=== PATIENT | female | born 1965 | race Caucasian/White ===

== ENCOUNTER → 2016-04-10 | Outpatient (CLI) | payer OTHER ==
[~2016-04-10] MED LIST: ADVIN50050 INH; ALBU1AER9 INH; AMB10 PO; CALC-343; CALC0.5C2 PO; DIAZ10TA PO; ERGO1CAP35 PO; FENO48TA9 PO; KRIL1CAP7 PO; LAMO100T16 PO; LEVO125T4 PO; MORP30TA PO; NATA1INJ IV; ONDA4TAB65 PO; OXYC-787 PO; OXYC1TAB PO; RANI1TAB77 PO; RIZA10TA18 PO; SNG10 PO; TIZA1CAP PO; ZOLP12.5 PO; [UNRECOGNIZED DRUG - CODE] TOP; [UNRECOGNIZED DRUG - OTHER] IV
== END | disposition home or self-care (01) ==
LOC: C.LAB 12:38
PROVIDERS: ATTEND Internal Medicine Endocrinology, Diabetes & Metabolism
DX: E55.9 Vitamin D deficiency, unspecified (principal); M85.80 Other specified disorders of bone density and structure, unspecified site

== ENCOUNTER → 2016-07-07 | Outpatient (CLI) | payer OTHER ==
[~2016-07-07] MED LIST changes: -LEVO125T4 PO; +LEVO125T5 PO
[2016-07-07 13:35] LABS: HEMATOCRIT 39.1 % (37-47); MEAN CELL VOLUME 89.3 fL (80-100); MEAN CORPUSCULAR HEMOGLOBIN 31.1 pg (25-34); MEAN CORPUSCULAR HGB CONC 34.8 g/dl (32-36); MEAN PLATELET VOLUME 9.9 fL (7.4-10.4); PLATELET COUNT 210 K/uL (130-400); RED BLOOD COUNT 4.38 M/uL (4.2-5.4); WHITE BLOOD COUNT 11.64 K/uL (4.8-10.8)
[2016-07-07 13:56] LABS: ALT/SGPT 19 U/L (12-78); BASO % 0.3 %; BASO ABS # 0.04 K/uL (0-0.2); BLOOD UREA NITROGEN 12 mg/dl (7-18); CALCIUM 9.1 mg/dl (8.5-10.1); CARBON DIOXIDE 25 mmol/L (21-32); CHLORIDE 108 mmol/L (98-107); COMPLETE YES; CREATININE 0.73 mg/dl (0.60-1.20); EOS % 2.1 %; GLUCOSE 94 mg/dl (70-99); IG% 0.4 %; LYMPH % 35.7 %; LYMPH ABS # 4.15 K/uL (1.2-3.4); MONO % 5.8 %; NEUT % 55.7 %; POTASSIUM 3.8 mmol/L (3.5-5.1); SODIUM 140 mmol/L (136-145)
[2016-07-07 14:08] LABS: ALB/GLOB RATIO 1.2 (0.9-2); ALKALINE PHOSPHATASE 53 U/L (45-117); AST/SGOT 17 U/L (15-37)
[2016-07-12 01:45] LABS: JCV ANTIBODY NEGATIVE; JCV INDEX 0.12
== END | disposition home or self-care (01) ==
LOC: C.LAB 10:34
PROVIDERS: ATTEND Psychiatry & Neurology Neurology
DX: G35 Multiple sclerosis (principal); E55.9 Vitamin D deficiency, unspecified; T14.8 Other injury of unspecified body region; X58.XXXA Exposure to other specified factors, initial encounter

== ENCOUNTER → 2016-08-04 | Outpatient (CLI) | payer OTHER | END | disposition home or self-care (01) | LOC: C.LABSPEC 11:11 | PROVIDERS: ATTEND Internal Medicine Endocrinology, Diabetes & Metabolism | DX: E55.9 Vitamin D deficiency, unspecified (principal); M85.80 Other specified disorders of bone density and structure, unspecified site; E03.8 Other specified hypothyroidism ==

== ENCOUNTER → 2017-01-05 | Outpatient (CLI) | payer OTHER ==
[~2017-01-05] MED LIST changes: -ADVIN50050 INH; -AMB10 PO; -ERGO1CAP35 PO; +GADAVIST IV PRN; +LEVO125T4 PO; -LEVO125T5 PO; -OXYC1TAB PO; -[UNRECOGNIZED DRUG - OTHER] IV
--- NOTE | 2017-01-05 13:14 | DIAGNOSTIC IMAGING REPORT ---
MRI THE THORACIC SPINE WITHOUT A WITH GADOLINIUM CLINICAL HISTORY: G35 Multiple [id number] [id number] Incomplete emptying of the bladder COMPARISON STUDY: No previous studies for comparison. FINDINGS: Imaging was performed in the sagittal and axial planes, before and after the administration of 7.7 cc of intravenous Gadavist. No cord lesions are visualized. There is no pathologic enhancement. There are no suspicious areas of marrow replacement. No disc herniations are visualized. IMPRESSION: Unremarkable MRI of the thoracic spine. Electronically signed by: Timmy Sanchez M.D. 01/05/2017 1:13 PM Dictated Date/Time: 01/05/2017 1:09 PM
--- NOTE | 2017-01-05 13:15 | DIAGNOSTIC IMAGING REPORT ---
BRAIN COMBO FOR MS CLINICAL HISTORY: Multiple sclerosis. Gait disturbance. Fatigue. COMPARISON STUDY: MRI of the brain March 04, 2016. TECHNIQUE: Utilizing 1.5 Claritza magnet and dedicated coil, multiplanar, multi echo imaging of the brain was performed pre and postcontrast administration according to multiple sclerosis protocol. Injection of 7. Cc of Gadavist IV was uneventful. FINDINGS: There are no areas of restricted diffusion. No acute intracranial hemorrhage, midline shift or mass effect is present. Ventricular system is normal. Basilar cisterns are patent. There are no extra-axial collections. Flow-voids for the major intracranial vessels are present. There is no intracranial mass or pathologic enhancement. Multiple white matter T2 hyperintense foci, predominantly within a periventricular distribution, are similar to exam of December 04, 2015. No new areas of signal abnormality are present. Calvarial signal is maintained. Orbits are unremarkable. IMPRESSION: 1. No acute intracranial findings. 2. No change in multiple white matter T2 hyperintense foci since exam of December 04, 2015 which suggest previous demyelination. No new areas of signal abnormality. No evidence for active demyelination. Electronically signed by: Campbell Butler M.D. 01/05/2017 1:14 PM Dictated Date/Time: 01/05/2017 1:08 PM
--- NOTE | 2017-01-05 13:21 | DIAGNOSTIC IMAGING REPORT ---
CERVICAL SPINE COMBO CLINICAL HISTORY: 51 years-old Female presenting with G35 Multiple [id number] OlqptazO94.9 Incomplete emptying of the bladder, pain down the exterior of the left leg. TECHNIQUE: Multisequence, multiplanar MR imaging of the cervical spine was performed before and after the administration of intravenous contrast. IV contrast: 7.7 mL of Gadavist. COMPARISON: 06/17/2012. FINDINGS: Localizer images: Unremarkable. Normal cervical lordosis. Vertebral bodies maintain normal height, alignment, bone marrow signal intensity. Intervertebral disc heights preserved, although suggestion of annular fissures at C3-4 and C5-6 ((series 14 image 8). Small disc osteophyte complexes noted at these levels with resultant minimal spinal canal narrowing. This does not significantly impact the spinal cord. No significant neural foraminal narrowing. Spinal cord maintains normal morphology and signal intensity. Craniocervical junction normal. No convincing evidence of a spinal cord lesion. Paraspinal soft tissues within normal limits. Postcontrast imaging demonstrates no abnormal enhancement within the spinal cord. IMPRESSION: 1. No evidence of spinal cord lesion or abnormal enhancement to suggest demyelinating disease in the cervical spine. 2. Mild degenerative changes with annular fissures and small disc osteophyte complexes at C3-4 and C5-6. No significant spinal canal or neural foraminal narrowing. Electronically signed by: Geoff Don M.D. 01/05/2017 1:19 PM Dictated Date/Time: 01/05/2017 1:12 PM
== END | disposition home or self-care (01) ==
LOC: C.MRI 10:25
PROVIDERS: ATTEND Psychiatry & Neurology Neurology
DX: G35 Multiple sclerosis (principal); F09 Unspecified mental disorder due to known physiological condition; R53.83 Other fatigue; R26.9 Unspecified abnormalities of gait and mobility; R33.9 Retention of urine, unspecified

== ENCOUNTER → 2017-01-05 | Outpatient (CLI) | payer OTHER ==
[~2017-01-05] MED LIST changes: -GADAVIST IV PRN
[2017-01-05 08:47] LABS: BASO % 0.5 %; BASO ABS # 0.05 K/uL (0-0.2); COMPLETE YES; EOS % 2.6 %; HEMATOCRIT 39.1 % (37-47); IG% 0.1 %; LYMPH % 36.4 %; LYMPH ABS # 3.69 K/uL (1.2-3.4); MEAN CELL VOLUME 89.7 fL (80-100); MEAN CORPUSCULAR HGB CONC 33.5 g/dl (32-36); MEAN PLATELET VOLUME 9.4 fL (7.4-10.4); MONO % 6.2 %; NEUT % 54.2 %; PLATELET COUNT 221 K/uL (130-400); RED BLOOD COUNT 4.36 M/uL (4.2-5.4); WHITE BLOOD COUNT 10.13 K/uL (4.8-10.8)
[2017-01-05 09:16] LABS: ALT/SGPT 12 U/L (12-78); BLOOD UREA NITROGEN 10 mg/dl (7-18); BUN/CREATININE RATIO 12.5 (10-20); CALCIUM 9.2 mg/dl (8.5-10.1); CARBON DIOXIDE 25 mmol/L (21-32); CHLORIDE 109 mmol/L (98-107); CREATININE 0.79 mg/dl (0.60-1.20); GLUCOSE 88 mg/dl (70-99); POTASSIUM 3.9 mmol/L (3.5-5.1); SODIUM 141 mmol/L (136-145)
[2017-01-05 09:27] LABS: ALB/GLOB RATIO 1.1 (0.9-2); ALKALINE PHOSPHATASE 42 U/L (45-117); AST/SGOT 14 U/L (15-37); THYROID STIMULATING HORMONE 0.023 uIu/ml (0.300-4.500)
[2017-01-05 09:47] LABS: LYME DISEASE AB IGG NEG (NEG); LYME DISEASE AB IGM NEG (NEG)
== END | disposition home or self-care (01) ==
LOC: C.LABSPEC 12:26
PROVIDERS: ATTEND Internal Medicine Endocrinology, Diabetes & Metabolism
DX: M85.80 Other specified disorders of bone density and structure, unspecified site (principal); G35 Multiple sclerosis; R53.83 Other fatigue; F09 Unspecified mental disorder due to known physiological condition; E88.81 Metabolic syndrome and other insulin resistance; E55.9 Vitamin D deficiency, unspecified

== ENCOUNTER → 2017-02-02 | Outpatient (CLI) | payer OTHER ==
[~2017-02-02] MED LIST changes: -LEVO125T4 PO; +LEVO125T5 PO
[2017-02-02 08:49] LABS: CALCIUM 9.2 mg/dl (8.5-10.1)
[2017-02-02 08:55] LABS: ESTIMATED AVERAGE GLUCOSE 108 mg/dl; HA1C FLAG Normal (Normal)
[2017-02-02 08:58] LABS: CHOLESTEROL/HDL RATIO 3.9
== END | disposition home or self-care (01) ==
LOC: C.LAB 16:47
PROVIDERS: ATTEND Internal Medicine Endocrinology, Diabetes & Metabolism
DX: M85.80 Other specified disorders of bone density and structure, unspecified site (principal); E78.5 Hyperlipidemia, unspecified; E88.81 Metabolic syndrome and other insulin resistance; E66.9 Obesity, unspecified; E55.9 Vitamin D deficiency, unspecified

== ENCOUNTER → 2017-06-10 | Outpatient (CLI) | payer OTHER ==
[2017-06-10 11:17] LABS: HEMATOCRIT 38.2 % (37-47); HEMOGLOBIN 13.2 g/dL (12.0-16.0); MEAN CELL VOLUME 88.6 fL (80-100); MEAN CORPUSCULAR HEMOGLOBIN 30.6 pg (25-34); MEAN CORPUSCULAR HGB CONC 34.6 g/dl (32-36); MEAN PLATELET VOLUME 9.5 fL (7.4-10.4); NUCLEATED RED BLOOD CELL ABS 0.02 K/uL (0-0); PLATELET COUNT 196 K/uL (130-400); RED CELL DISTRIBUTION WIDTH CV 13.9 % (11.5-14.5); RED CELL DISTRIBUTION WIDTH SD 45.8 fL (36.4-46.3); WHITE BLOOD COUNT 7.56 K/uL (4.8-10.8)
[2017-06-10 11:42] LABS: ALBUMIN 3.7 gm/dl (3.4-5.0); ALT/SGPT 19 U/L (12-78); AST/SGOT 12 U/L (15-37); BLOOD UREA NITROGEN 11 mg/dl (7-18); CALCIUM 9.6 mg/dl (8.5-10.1); CARBON DIOXIDE 27 mmol/L (21-32); CREATININE 0.69 mg/dl (0.60-1.20); GLUCOSE 88 mg/dl (70-99); POTASSIUM 3.7 mmol/L (3.5-5.1); SODIUM 137 mmol/L (136-145)
[2017-06-10 11:52] LABS: ALKALINE PHOSPHATASE 41 U/L (45-117); TOTAL PROTEIN 6.8 gm/dl (6.4-8.2)
== END | disposition home or self-care (01) ==
LOC: C.LAB 16:51
PROVIDERS: ATTEND Internal Medicine Endocrinology, Diabetes & Metabolism
DX: G35 Multiple sclerosis (principal); E55.9 Vitamin D deficiency, unspecified

== ENCOUNTER → 2017-07-08 | Outpatient (CLI) | payer OTHER ==
[~2017-07-08] MED LIST changes: -ALBU1AER9 INH; -CALC-343; -KRIL1CAP7 PO; -LAMO100T16 PO; -LEVO125T5 PO; +LEVO150T9 PO; +MONT1TAB3 PO; -MORP30TA PO; -OXYC-787 PO; -SNG10 PO; +VNTHFA/IN INH; -ZOLP12.5 PO
== END | disposition home or self-care (01) ==
LOC: C.LAB 16:20
PROVIDERS: ATTEND Psychiatry & Neurology Neurology
DX: G35 Multiple sclerosis (principal)

== ENCOUNTER → 2017-07-10 | Day surgery (SDC) | payer OTHER ==
[2016-10-09 09:24] VITALS: BMI 31.0
[2017-07-01 11:00] VITALS: Ht 162.6 cm; Wt 74.5 kg
[~2017-07-10] VITALS: Ht 162.6 cm; Wt 74.5 kg
[~2017-07-10] MED LIST changes: +LIDOCAINE HCL 2% 2 ML VIAL (20MG/ML) ONE; +MIDAZOLAM HCL 1 MG/ML 2ML VIAL ONE; +ONDANSETRON INJ 2 MG/ML 2 ML VIAL ONE; +PROPOFOL IV EMULSION 10 MG/ML 20 ML VIAL IV ONE
--- NOTE | 2017-07-10 09:19 | Endo History and Physical ---
History & Physical Date of Service: Jul 10, 2017. Chief Complaint: Screening, Hx polyps Referring Physician: Dr Cevallos History of Present Illness 51 yo CF who presents for colonoscopy secondary to history of polyps. Past Medical History Asthma, Cancer, COPD, Thyroid Disease Past Surgical History Hx Cardiac Surgery: Yes (CARDIAC ABLATION-2006) Hx Internal Defibrillator: No Hx Pacemaker: No Hx Abdominal Surgery: Yes (, TUBAL LIGATION) Hx of Implantable Prosthesis: No Hx Post-Op Nausea and Vomiting: Yes Hx Cancer Surgery: Yes (TAHBSO) Hx Thoracic Surgery: No Hx Orthopedic: No Hx Urinary Tract Surgery: No Family History Polyp Social History Smoking Status: Current Every Day Smoker Hx Substance Use: Yes (SEE MED REC) Hx Alcohol Use: No Allergies Coded Allergies: Aspirin (Unverified Allergy, Severe, ANAPHYLAXIS, 07/01/17) Glatiramer (Unverified Allergy, Severe, ANAPHYLAXIS,IRREGULAR HEART RATE, 07/01/17) Heparin (Unverified Allergy, Severe, ANAPHYLAXIS, 07/01/17) Ibuprofen (Unverified Allergy, Severe, ANAPHYLAXIS, 07/01/17) Mannitol (Unverified Allergy, Severe, ANAPHYLAXIS,IRREGULAR HEART RATE, 07/01/17) NSAIDs (Unverified Allergy, Severe, ANAPHYLAXIS, 07/01/17) [place] (Unverified Allergy, Severe, ANAPHYLAXIS, 07/01/17) Topiramate (Unverified Allergy, Severe, DIFFICULTY BREATHING,ASTHMATIC SYMPTOMS, 07/01/17) Penicillin V (Unverified Allergy, Intermediate, HIVES,IRREGULAR HEART BEAT , 07/01/17) Sulfa Antibiotics (Unverified Allergy, Intermediate, HIVES, 07/01/17) Azithromycin (Unverified Allergy, Unknown, HIVES, 07/01/17) Bupropion (Unverified Allergy, Unknown, UNKNOWN, 07/01/17) CI Pigment Blue 63 (Unverified Allergy, Unknown, SUICIDAL THOUGHTS, DIFFICULTY BREATHING, 07/01/17) Duloxetine (Unverified Allergy, Unknown, SUICIDAL THOUGHTS,DIFFICULTY BREATHING, 07/01/17) Erythromycin (Unverified Allergy, Unknown, HIVES, 07/01/17) Paroxetine (Unverified Allergy, Unknown, UNKNOWN, 07/01/17) Sertraline (Unverified Allergy, Unknown, UNKNOWN, 07/01/17) Tamsulosin (Unverified Allergy, Unknown, UNKNOWN, 07/01/17) Azathioprine (Unverified Adverse Reaction, Unknown, CARDIAC ISSUES, IRREGULAR HEART RATE, 07/01/17) Cyclobenzaprine (Unverified Adverse Reaction, Unknown, unknown, 07/01/17) Cyclophosphamide (Unverified Adverse Reaction, Unknown, Cyxtoxan - CARDIAC ISSUES-IRREGULAR HEART RATE, 07/01/17) Pregabalin (Unverified Adverse Reaction, Unknown, HIVES CARDIAC ISSUES, IRREGULAR HEART RATE, 07/01/17) Current Medications Reported Home Medications Medications Dose Route/Sig Max Daily Dose Days Date Category Dose Instructions Ventolin Hfa (Albuterol) 200 Puffs/19077 Mcg Aers 2-4 Puffs INH Q6H PRN 07/01/17 Reported Singulair (Montelukast Sodium) 10 Mg Tab 10 Mg PO HS 07/01/17 Reported Levothyroxine Sodium 150 Mcg Tab 150 Mcg PO QAM 07/01/17 Reported Tysabri (Natalizumab) 300 Mg/15 Ml Inj 1 Dose IV MONTHLY 10/09/16 Reported Rocaltrol (Calcitriol) 0.5 Mcg Cap 3 Cap PO TID 10/09/16 Reported Zofran (Ondansetron Hcl) 4 Mg Tab 1 Tab PO Q6H PRN 02/08/15 Reported Tizanidine Hcl 2 Mg Cap 2 Mg PO BID PRN 02/02/15 Reported Lidocaine HCl (Lidocaine/Epineph/Tetracaine) 1 Ea Gel 1 Dose TOP UD PRN 02/02/15 Reported LIDOCAINE 2.5 %/PRILOCAINE CREAM-USES TOPICALLY PRIOR TO IV STICKS Ranitidine [address] (Ranitidine HCl) 150 Mg Tab 150 Mg PO BID 02/02/15 Reported INSTRUCTED TO TAKE AM SURG SIP WATER Tricor (Fenofibrate) 48 Mg Tab 48 Mg PO QAM 02/02/15 Reported Maxalt (Rizatriptan Benzoate) 10 Mg Tab 10 Mg PO UD PRN 02/02/15 Reported Valium (Diazepam) 10 Mg Tab 10 Mg PO TID 03/16/11 Reported Vital Signs Weight (Kilograms): 74.55 Height (Feet): 5 Height (Inches): 4 Date Time Temp Pulse Resp B/P (MAP) Pulse Ox O2 Delivery O2 Flow Rate FiO2 07/10/17 09:12 36.6 80 18 96/60 (72) 18 Room Air Physical Exam General Appearance: WD/WN, no apparent distress Respiratory/Chest: Auscultation: breath sounds normal Cardiovascular: Heart Auscultation: RRR Abdomen: Bowel Sounds: normal Inspection & Palpation: soft, non-distended, no tenderness, guarding & rebound Assessment and Plan Assessment: 51 yo CF who presents for colonoscopy secondary to history of polyps. Plan: Proceed with colonoscopy.
--- NOTE | 2017-07-10 10:24 | GI REPORT ---
Procedure Date: 07/10/2017 9:41 AM Procedure: Colonoscopy Indications: High risk colon cancer surveillance: Personal history of colonic polyps Medicines: Monitored Anesthesia Care Complications: No immediate complications. Estimated Blood Loss: Estimated blood loss: none. Procedure: Pre-Anesthesia Assessment: - Prior to the procedure, a History and Physical was performed, and patient medications and allergies were reviewed. The patient's tolerance of previous anesthesia was also reviewed. The risks and benefits of the procedure and the sedation options and risks were discussed with the patient. All questions were answered, and informed consent was obtained. Prior Anticoagulants: The patient has taken no previous anticoagulant or antiplatelet agents. ASA Grade Assessment: III - A patient with severe systemic disease. After reviewing the risks and benefits, the patient was deemed in satisfactory condition to undergo the procedure. After I obtained informed consent, the scope was passed under direct vision. Throughout the procedure, the patient's blood pressure, pulse, and oxygen saturations were monitored continuously. The scope was introduced through the anus and advanced to the terminal ileum. The colonoscopy was performed without difficulty. The patient tolerated the procedure well. The quality of the bowel preparation was good. The terminal ileum, ileocecal valve, appendiceal orifice, and rectum were photographed. Findings: The perianal and digital rectal examinations were normal. Multiple small-mouthed diverticula were found in the sigmoid colon. A 3 mm polyp was found in the rectum. The polyp was sessile. The polyp was removed with a cold snare. Resection and retrieval were complete. Non-bleeding internal hemorrhoids were found during retroflexion. The hemorrhoids were small. Impression: - Diverticulosis in the sigmoid colon. - One 3 mm polyp in the rectum, removed with a cold snare. Resected and retrieved. - Non-bleeding internal hemorrhoids. Recommendation: - Resume previous diet. - Continue present medications. - Repeat colonoscopy for surveillance based on pathology results. - Return to primary care physician as previously scheduled. Vladimir Gonzalez, DO 07/10/2017 10:23:38 AM This report has been signed electronically. Note Initiated On: 07/10/2017 9:41 AM I attest to the content of the Intraoperative Record and orders documented therein, exceptions below
--- NOTE | 2017-07-10 10:25 | Discharge Instructions ---
Endoscopy Patient Instructions Date / Procedure(s) Performed Jul 10, 2017. Colonoscopy Allergy Information Coded Allergies: Aspirin (Unverified Allergy, Severe, ANAPHYLAXIS, 07/01/17) Glatiramer (Unverified Allergy, Severe, ANAPHYLAXIS,IRREGULAR HEART RATE, 07/01/17) Heparin (Unverified Allergy, Severe, ANAPHYLAXIS, 07/01/17) Ibuprofen (Unverified Allergy, Severe, ANAPHYLAXIS, 07/01/17) Mannitol (Unverified Allergy, Severe, ANAPHYLAXIS,IRREGULAR HEART RATE, 07/01/17) NSAIDs (Unverified Allergy, Severe, ANAPHYLAXIS, 07/01/17) [place] (Unverified Allergy, Severe, ANAPHYLAXIS, 07/01/17) Topiramate (Unverified Allergy, Severe, DIFFICULTY BREATHING,ASTHMATIC SYMPTOMS, 07/01/17) Penicillin V (Unverified Allergy, Intermediate, HIVES,IRREGULAR HEART BEAT , 07/01/17) Sulfa Antibiotics (Unverified Allergy, Intermediate, HIVES, 07/01/17) Azithromycin (Unverified Allergy, Unknown, HIVES, 07/01/17) Bupropion (Unverified Allergy, Unknown, UNKNOWN, 07/01/17) CI Pigment Blue 63 (Unverified Allergy, Unknown, SUICIDAL THOUGHTS, DIFFICULTY BREATHING, 07/01/17) Duloxetine (Unverified Allergy, Unknown, SUICIDAL THOUGHTS,DIFFICULTY BREATHING, 07/01/17) Erythromycin (Unverified Allergy, Unknown, HIVES, 07/01/17) Paroxetine (Unverified Allergy, Unknown, UNKNOWN, 07/01/17) Sertraline (Unverified Allergy, Unknown, UNKNOWN, 07/01/17) Tamsulosin (Unverified Allergy, Unknown, UNKNOWN, 07/01/17) Azathioprine (Unverified Adverse Reaction, Unknown, CARDIAC ISSUES, IRREGULAR HEART RATE, 07/01/17) Cyclobenzaprine (Unverified Adverse Reaction, Unknown, unknown, 07/01/17) Cyclophosphamide (Unverified Adverse Reaction, Unknown, Cyxtoxan - CARDIAC ISSUES-IRREGULAR HEART RATE, 07/01/17) Pregabalin (Unverified Adverse Reaction, Unknown, HIVES CARDIAC ISSUES, IRREGULAR HEART RATE, 07/01/17) Discharge Date / Findings Jul 10, 2017. Rectal polyp Diverticulosis Internal hemorrhoids Medication Instructions OK to resume all medications today as prescribed Reported Home Medications Medications Dose Route/Sig Max Daily Dose Days Date Category Dose Instructions Ventolin Hfa (Albuterol) 200 Puffs/49825 Mcg Aers 2-4 Puffs INH Q6H PRN 07/01/17 Reported Singulair (Montelukast Sodium) 10 Mg Tab 10 Mg PO HS 07/01/17 Reported Levothyroxine Sodium 150 Mcg Tab 150 Mcg PO QAM 07/01/17 Reported Tysabri (Natalizumab) 300 Mg/15 Ml Inj 1 Dose IV MONTHLY 10/09/16 Reported Rocaltrol (Calcitriol) 0.5 Mcg Cap 3 Cap PO TID 10/09/16 Reported Zofran (Ondansetron Hcl) 4 Mg Tab 1 Tab PO Q6H PRN 02/08/15 Reported Tizanidine Hcl 2 Mg Cap 2 Mg PO BID PRN 02/02/15 Reported Lidocaine HCl (Lidocaine/Epineph/Tetracaine) 1 Ea Gel 1 Dose TOP UD PRN 02/02/15 Reported LIDOCAINE 2.5 %/PRILOCAINE CREAM-USES TOPICALLY PRIOR TO IV STICKS Ranitidine [address] (Ranitidine HCl) 150 Mg Tab 150 Mg PO BID 02/02/15 Reported INSTRUCTED TO TAKE AM SURG SIP WATER Tricor (Fenofibrate) 48 Mg Tab 48 Mg PO QAM 02/02/15 Reported Maxalt (Rizatriptan Benzoate) 10 Mg Tab 10 Mg PO UD PRN 02/02/15 Reported Valium (Diazepam) 10 Mg Tab 10 Mg PO TID 03/16/11 Reported Provider Instructions Activity Restrictions - No exercising or heavy lifting for 24 hours. - Do not drink alcohol the day of the procedure. - Do not drive a car or operate machinery until the day after the procedure. - Do not make any important decisions or sign important papers in 24 hours after the procedure. Following Day: - Return to full activity which may include returning to work/school. Diet Start your diet with liquids and light foods (jello, soup, juice, toast). Then eat your usual diet if not nauseated. Treatment For Common After Affects For mild abdominal pain, bloating, or excessive gas: - Rest - Eat lightly - Lie on right side Follow-Up Information Follow-up with Dr Cevallos as scheduled Anesthesia Information What You Should Know You have had a procedure that required some medicine to reduce anxiety and discomfort. This treatment is called moderate sedation. After receiving the treatment, you may be sleepy, but you will be able to breathe on your own. The effects of the treatment may last for several hours. Follow these instructions along with Activity/Diet recommendations noted above: * Do NOT do anything where dizziness or clumsiness would be dangerous. * Rest quietly at home today, then you can be up and about tomorrow. * Have a responsible person stay with you the rest of today. * You may have had an I.V. today. If so, you may take the dressing off later today. Recommendations Call your doctor if: * Trouble breathing * Continuous vomiting for more than 24 hours * Temperature above 101 degrees * Severe abdominal pain or bloating * Pain not relieved by pain medicine ordered * There is increased drainage or redness from any incision * A large amount of rectal bleeding greater than 2-3 tablespoons. (If you had a polyp/s removed or have hemorrhoids, a small amount of blood - from the rectum is to be expected.) * You have any unanswered questions or concerns. IN THE EVENT OF A SERIOUS EMERGENCY, GO TO THE NEAREST EMERGENCY ROOM Your discharge instructions were prepared by provider Vladimir Gonzaelz. Patient Instructions Signature Page Bryanna Salcedo Patient (or Guardian) Signature/Date: I have read and understand the instructions given to me by my caregivers. Caregiver/RN/Doctor Signature/Date: The above-named patient and/or guardian has received patient instructions on this date. + Original Patient Signature Page (only) stays with chart. Please make copy for patient.
--- NOTE | 2017-07-10 10:32 | Anesthesiology Progress Note ---
Anesthesia Post Op Note Date & Time Jul 10, 2017 at 10:32 Vital Signs Vital Signs Past 12 Hours Date Time Temp Pulse Resp B/P (MAP) Pulse Ox O2 Delivery O2 Flow Rate FiO2 07/10/17 09:12 36.6 80 18 96/60 (72) 18 Room Air Notes Mental Status: alert / awake / arousable, participated in evaluation Pt Amnestic to Procedure: Yes Nausea / Vomiting: adequately controlled Pain: adequately controlled Airway Patency, RR, SpO2: stable & adequate BP & HR: stable & adequate Hydration State: stable & adequate Anesthetic Complications: no major complications apparent
[2017-07-10 10:51] VITALS: BP 116/72; PULSE 76; O2SAT 98
== END | disposition home or self-care (01) ==
LOC: C.GI 08:09
PROVIDERS: ATTEND Internal Medicine
DX: Z12.11 Encounter for screening for malignant neoplasm of colon (principal); Z86.010 Personal history of colon polyps; K63.5 Polyp of colon; K64.8 Other hemorrhoids; K57.30 Diverticulosis of large intestine without perforation or abscess without bleeding; J45.909 Unspecified asthma, uncomplicated; F17.200 Nicotine dependence, unspecified, uncomplicated; G35 Multiple sclerosis; J44.9 Chronic obstructive pulmonary disease, unspecified; Z90.710 Acquired absence of both cervix and uterus; Z83.71 Family history of colonic polyps; Z79.84 Long term (current) use of oral hypoglycemic drugs; Z88.6 Allergy status to analgesic agent; Z88.0 Allergy status to penicillin; Z88.2 Allergy status to sulfonamides; Z88.1 Allergy status to other antibiotic agents; Z88.8 Allergy status to other drugs, medicaments and biological substances; Z85.42 Personal history of malignant neoplasm of other parts of uterus